=== PATIENT | female | born 2000 | race Caucasian/White ===

== ENCOUNTER → 2025-06-21 | Outpatient (CLI) | payer OTHER ==
[2025-06-21 17:27] LABS: PLATELET COUNT, AUTOMATED 233 10^3/uL (150-450)
[2025-06-21 17:55] LABS: HIV 1&2 SCREEN NEGATIVE (NEGATIVE)
[2025-06-21 18:04] LABS: HEPATITIS C VIRUS ABY INDEX < 0.02 INDEX (<0.8)
[2025-06-21 18:26] LABS: Trichomonas vaginalis (AMP) NOT DETECTED (NEGATIVE)
[2025-06-21 18:50] LABS: GC DNA AMPLIFICATION NEGATIVE (NEGATIVE)
== END ==
LOC: M PLALAB 15:34
PROVIDERS: ATTEND Student in an Organized Health Care Education/Training Program
DX: Z34.02 Encounter for supervision of normal first pregnancy, second trimester (principal)

== ENCOUNTER → 2025-06-21 | Outpatient (REF) | payer OTHER | LOC: M PLALAB 15:26 | PROVIDERS: ATTEND Student in an Organized Health Care Education/Training Program | DX: Z34.02 Encounter for supervision of normal first pregnancy, second trimester (principal); Z53.8 Procedure and treatment not carried out for other reasons ==

== ENCOUNTER → 2025-06-25 | Outpatient (CLI) | payer OTHER | LOC: M RAD 13:20 | PROVIDERS: ATTEND Student in an Organized Health Care Education/Training Program | DX: Z34.02 Encounter for supervision of normal first pregnancy, second trimester (principal); Z3A.21 21 weeks gestation of pregnancy ==

== ENCOUNTER → 2025-07-22 | Outpatient (CLI) | payer OTHER ==
[2025-07-22 13:20] LABS: PLATELET COUNT, AUTOMATED 210 10^3/uL (150-450)
[2025-07-22 13:25] LABS: GLUCOSE CHALLENGE TEST 1 HOUR 127 MG/DL (LESS THAN 140)
[2025-07-22 14:00] LABS: HIV 1&2 SCREEN NEGATIVE (NEGATIVE)
[2025-07-22 14:08] LABS: HEPATITIS C VIRUS ABY INDEX < 0.02 INDEX (<0.8)
[2025-07-22 15:45] LABS: GC DNA AMPLIFICATION NEGATIVE (NEGATIVE)
[2025-07-22 16:44] LABS: Trichomonas vaginalis (AMP) NOT DETECTED (NEGATIVE)
== END ==
LOC: M PLALAB 09:17
PROVIDERS: ATTEND Nurse Practitioner Family
DX: Z34.02 Encounter for supervision of normal first pregnancy, second trimester (principal)

== ENCOUNTER → 2025-07-22 | Outpatient (CLI) | payer OTHER | LOC: M WHC 08:13 | PROVIDERS: ATTEND Student in an Organized Health Care Education/Training Program | DX: Z34.82 Encounter for supervision of other normal pregnancy, second trimester (principal); Z3A.25 25 weeks gestation of pregnancy ==

== ENCOUNTER → 2025-08-05 | Outpatient (CLI) | payer OTHER | LOC: M WHC 06:48 | PROVIDERS: ATTEND Student in an Organized Health Care Education/Training Program | DX: O36.5920 Maternal care for other known or suspected poor fetal growth, second trimester, not applicable or unspecified (principal); Z3A.27 27 weeks gestation of pregnancy ==

== ENCOUNTER → 2025-08-17 | Outpatient (CLI) | payer OTHER | LOC: M WHC 06:50 | PROVIDERS: ATTEND Student in an Organized Health Care Education/Training Program | DX: O36.5990 Maternal care for other known or suspected poor fetal growth, unspecified trimester, not applicable or unspecified (principal) ==

== ENCOUNTER → 2025-08-24 | Outpatient (CLI) | payer OTHER | LOC: M WHC 07:02 | PROVIDERS: ATTEND Nurse Practitioner Family | DX: O36.5990 Maternal care for other known or suspected poor fetal growth, unspecified trimester, not applicable or unspecified (principal); Z3A.00 Weeks of gestation of pregnancy not specified ==

== ENCOUNTER → 2025-09-02 | Outpatient (CLI) | payer OTHER | LOC: M WHC 12:19 | PROVIDERS: ATTEND Student in an Organized Health Care Education/Training Program | DX: O36.5993 Maternal care for other known or suspected poor fetal growth, unspecified trimester, fetus 3 (principal); Z3A.29 29 weeks gestation of pregnancy ==

== ENCOUNTER → 2025-09-03 | Outpatient (CLI) | payer OTHER | LOC: M WHC 09:30 | PROVIDERS: ATTEND Student in an Organized Health Care Education/Training Program | DX: O36.5990 Maternal care for other known or suspected poor fetal growth, unspecified trimester, not applicable or unspecified (principal) ==

== ENCOUNTER → 2025-09-08 | Outpatient (CLI) | payer OTHER | LOC: M WHC 11:59 | PROVIDERS: ATTEND Student in an Organized Health Care Education/Training Program | DX: O36.5990 Maternal care for other known or suspected poor fetal growth, unspecified trimester, not applicable or unspecified (principal) ==

== ENCOUNTER → 2025-09-14 | Outpatient (REF) | payer OTHER | LOC: M SFHCWAGY 16:59 | PROVIDERS: ATTEND Advanced Practice Midwife | DX: Z3A.34 34 weeks gestation of pregnancy (principal) ==

== ENCOUNTER → 2025-09-16 | Outpatient (CLI) | payer OTHER | LOC: M WHC 11:50 | PROVIDERS: ATTEND Student in an Organized Health Care Education/Training Program | DX: O36.5990 Maternal care for other known or suspected poor fetal growth, unspecified trimester, not applicable or unspecified (principal); Z3A.00 Weeks of gestation of pregnancy not specified ==

== ENCOUNTER → 2025-09-23 | Outpatient (CLI) | payer OTHER | LOC: M WHC 12:16 | PROVIDERS: ATTEND Student in an Organized Health Care Education/Training Program | DX: O36.5990 Maternal care for other known or suspected poor fetal growth, unspecified trimester, not applicable or unspecified (principal) ==

== ENCOUNTER → 2025-09-30 | Outpatient (CLI) | payer OTHER ==
[~2025-09-30] MED LIST: PRENTAB9 PO; TUMS500C PO
== END ==
LOC: M WHC 11:25
PROVIDERS: ATTEND Student in an Organized Health Care Education/Training Program
DX: O36.5930 Maternal care for other known or suspected poor fetal growth, third trimester, not applicable or unspecified (principal); Z3A.32 32 weeks gestation of pregnancy

== ENCOUNTER 2025-10-02 16:40 | Inpatient (IN) | payer OTHER ==
[~2025-10-02] VITALS: Ht 149.9 cm; Wt 72.8 kg
[2025-10-02] MEDS ORDERED: TUMS500C PO (17:13)
[2025-10-02] MEDS ORDERED: PRENTAB9 PO (17:13)
[2025-10-02] MEDS ORDERED: HOME MED LIST COMPLETE! XX SCH (17:15)
[2025-10-02] MEDS: miSOPROStol 50 MCG 1/2 TABLET SL SCH (18:33)
[2025-10-02 18:46] LABS: PLATELET COUNT, AUTOMATED 191 10^3/uL (150-450)
[2025-10-02 19:43] VITALS: BP 109/61
[2025-10-02 19:46] LABS: HIV 1&2 SCREEN NEGATIVE (NEGATIVE)
[2025-10-02 19:53] LABS: HEPATITIS C VIRUS ABY INDEX 0.05 INDEX (<0.8)
[2025-10-02 22:11] VITALS: BP 112/63
[2025-10-02 23:46] VITALS: BP 114/78
[2025-10-03] VITALS (22 sets, daily range): BP systolic 79–146; BP diastolic 46–76
[2025-10-03] MEDS: BUTORPHANOL 2 MG/ML 1 ML VIAL IV ONE (12:08)
[2025-10-03] MEDS: OXYTOCIN DRIP 30 UNITS in IV 1 EA IV SCH (13:54)
[2025-10-03] MEDS ORDERED: LR 500 ML IV PRN (15:00)
[2025-10-03] MEDS ORDERED: NALOXONE INJ 0.4 MG/1 ML VIAL IV PRN (15:00)
[2025-10-03] MEDS ORDERED: ONDANSETRON 4MG/2ML VIAL IV PRN (15:00)
[2025-10-03] MEDS ORDERED: diphenhydrAMINE 50 MG/ML VIAL IV PRN (15:00)
[2025-10-03] MEDS ORDERED: EPIDURAL/PCA KEYS XX PRN (15:00)
[2025-10-03] MEDS: FENTANYL/ROPIVACAINE/NACL BAG 100 ML EPIDURAL SCH (15:24)
[2025-10-03] MEDS: LR 1,000 ML IV SCH ×2 (15:24→19:04)
[2025-10-04] VITALS (10 sets, daily range): BP systolic 103–120; BP diastolic 56–70; O2SAT 95–98
[2025-10-04] MEDS: ACETAMINOPHEN 500 MG TAB PO ONE (00:15)
[2025-10-04] MEDS: LIDOCAINE 1% MDV 20 ML VIAL INFIL PRN (02:01)
[2025-10-04] MEDS: OXYTOCIN DRIP 30 UNITS in IV 1 EA IV PRN (02:01)
[2025-10-04 02:04] LABS: CORD GAS ABE A -11.5; CORD GAS ABE V -6.1; CORD GAS HCO3 A 17.4 MMOL/L; CORD GAS HCO3 V 19.9 MMOL/L; CORD GAS O2 SAT A 50.8 %; CORD GAS O2 SAT V 64.3 %; CORD GAS PCO2 A 50.4 mmHg; CORD GAS PCO2 V 40.9 mmHg; CORD GAS PH A 7.156 UNITS; CORD GAS PH V 7.305 UNITS; CORD GAS PO2 A 27.0 mmHg; CORD GAS PO2 V 28.8 mmHg; CORD GAS SBC A 14.7 MMOL/L; CORD GAS SBC V 18.8 MMOL/L; CORD GAS TCO2 A 18.9 MMOL/L; CORD GAS TCO2 V 21.2 MMOL/L
[2025-10-04] MEDS ORDERED: METHYLERGONOVINE MALEATE 0.2 MG TAB PO PRN (02:15)
[2025-10-04] MEDS ORDERED: RHOGAM 300MCG (1500IU) INJ IM SCH (02:15)
[2025-10-04] MEDS: ACETAMINOPHEN 325 MG TAB PO PRN (04:07)
[2025-10-04] MEDS: DIBUCAINE 1% OINTMENT 30 GM TOP PRN (04:08)
[2025-10-04] MEDS: IBUPROFEN 800 MG TAB PO PRN (04:15)
[2025-10-04] MEDS: ACETAMINOPHEN 500 MG TAB PO PRN (08:44)
[2025-10-04] MEDS: DOCUSATE SODIUM 100 MG CAPSULE PO PRN (08:44)
[2025-10-04] MEDS: PRENATAL VITAMINS CHEWABLE TABLET PO SCH (08:44)
[2025-10-04] MEDS: IBUPROFEN 600 MG TAB PO PRN (22:07)
[2025-10-05 06:00] VITALS: BP 110/62; O2SAT 99
[2025-10-05] MEDS: FLUZONE VACCINE TRI PF(25-26) 0.5ML SYRINGE IM.IMMUN ONE (15:31)
[2025-10-05] MEDS: TETANUS/DIPHTH/ACEL. PERTUSSIS 0.5 ML SYR IM.IMMUN ONE (15:32)
[2025-10-06] MEDS ORDERED: MEASLES,MUMPS,RUBELLA VACCINE INJ (MMR-II) SC.IMMUN ONE (09:00)
== END 2025-10-05 15:40 | disposition home or self-care (01) | DRG 807 ==
LOC: M LDI 16:40 → M OBS 10-04 03:45
PROVIDERS: ADMIT Specialist; ATTEND Specialist
PROC: 3E0P7GC Introduction of Other Therapeutic Substance into Female Reproductive, Via Natural or Artificial Opening (ICD-10-PCS; 2025-10-02)
PROC: 10E0XZZ Delivery of Products of Conception, External Approach (ICD-10-PCS; principal; 2025-10-04)
PROC: 0HQ9XZZ Repair Perineum Skin, External Approach (ICD-10-PCS; 2025-10-04)
PROC: 10907ZC Drainage of Amniotic Fluid, Therapeutic from Products of Conception, Via Natural or Artificial Opening (ICD-10-PCS; 2025-10-04)
DX: O36.5930 Maternal care for other known or suspected poor fetal growth, third trimester, not applicable or unspecified (principal); Z37.0 Single live birth; Z3A.37 37 weeks gestation of pregnancy; Z88.0 Allergy status to penicillin; Z88.1 Allergy status to other antibiotic agents; Z88.8 Allergy status to other drugs, medicaments and biological substances; O70.0 First degree perineal laceration during delivery